=== PATIENT | male | born 1985 | race Caucasian/White ===

== ENCOUNTER 2017-08-17 20:09 | Emergency (ER) | payer OTHER ==
[2017-08-17 20:18] VITALS: BP 132/69
[2017-08-17] MEDS ORDERED: Phenylephrine 0.25% NASAL* PUFF BOTH NARES ONE (20:23)
[2017-08-17] MEDS ORDERED: Phenylephrine 0.5% NASAL* BTL ONE (20:28)
[2017-08-17] MEDS ORDERED: Phenylephrine 1% NASAL* 15 ML BOT ONE (20:36)
[2017-08-17] MEDS ORDERED: Amoxicillin/Clavulanate TAB* 875 MG PO ONE (20:45)
[2017-08-17] MEDS ORDERED: Acetaminop/Codeine 30 MG TAB* 1 TAB (300 MG/30 MG) PO ONE ×2 (20:45→21:21)
--- NOTE | 2017-08-17 21:10 | RAD ---
INDICATION: Hit in nose with lacrosse ball COMPARISON: None TECHNIQUE: Axial source images were acquired from the vertex of the mandible through the orbits. Coronal and sagittal reconstructed images were acquired. FINDINGS: Bones: There are multiple mildly displaced nasal bone fractures. There are no other facial bone fractures. Orbits: The globes and intraconal structures appear intact. The optic nerves are symmetric. Extraocular muscles appear normal. There is no intraconal inflammatory change or retrobulbar mass.. Paranasal sinuses: There is circumferential mucosal thickening of the maxillary antra bilaterally. There is mild mucosal thickening multiple ethmoid air cells. The remaining paranasal sinuses are clear. Brain: There are no acute abnormalities of the visualized brain parenchyma. Soft tissues: There is gauze in the nasal passageway Other: None The visualized soft tissue elements about the neck appear normal. IMPRESSION: BILATERAL DISPLACED NASAL BONE FRACTURES. NO OTHER FACIAL BONE FRACTURE. SINUSITIS.
--- NOTE | 2017-08-17 22:33 | UC ---
Epistaxis Nasal HPI - HPI Summary HPI Summary: 31 year old male presents with severe nose bleed and nasal contusion from a lacrosse ball. - History of Current Complaint Chief Complaint: UCTrauma Stated Complaint: NOSE INJURY Time Seen by Provider: 08/17/17 20:22 Hx Obtained From: Patient Onset/Duration: Lasting Hours Timing: Constant Severity Initially: Moderate Severity Currently: Moderate Pain Intensity: 8 Pain Scale Used: 0-10 Numeric Aggravating Factor(s): Nasal Trauma - Allergies/Home Medications Allergies/Adverse Reactions: Allergies Allergy/AdvReac Type Severity Reaction Status Date / Time No Known Allergies Allergy Verified 08/17/17 20:18 PMH/Surg Hx/FS Hx/Imm Hx Previously Healthy: Yes - Surgical History Surgical History: Yes Surgery Procedure, Year, and Place: Knee Surgeries - Family History Known Family History: Positive: None - Social History Alcohol Use: Rare Substance Use Type: None Smoking Status (MU): Never Smoked Tobacco - Immunization History Most Recent Influenza Vaccination: Not the Season Most Recent Tetanus Shot: Unknown Review of Systems Constitutional: Negative Skin: Negative Eyes: Negative ENT: Epistaxis Respiratory: Negative Cardiovascular: Negative Gastrointestinal: Negative Genitourinary: Negative Motor: Negative Neurovascular: Negative Musculoskeletal: Negative Neurological: Negative Psychological: Negative All Other Systems Reviewed And Are Negative: Yes Physical Exam Triage Information Reviewed: Yes Appearance: Pain Distress Vital Signs: Initial Vital Signs Temp 37.0 C 08/17/17 20:12 Pulse 72 08/17/17 20:12 Resp 18 08/17/17 20:12 BP 132/69 08/17/17 20:12 Pulse Ox 100 08/17/17 20:12 Vital Signs Reviewed: Yes Eye Exam: Normal ENT: Positive: Other - severe nasal swelling , bilateral nasal bleeding, severely deformed nasal anatomy bilateral posterior nasal bleeding not completely resolved by gauze placed at the place of injury Dental Exam: Normal Neck exam: Normal Neck: Positive: 1 Respiratory Exam: Normal Cardiovascular Exam: Normal Abdominal Exam: Normal Musculoskeletal Exam: Normal Neurological Exam: Normal Psychological Exam: Normal Skin Exam: Normal Procedures - Procedure Summary Procedure Summary: bilateral nares examined after gauze removed bilateral posterior bleeding bilateral neosynephrine placed in nares bilateral triple antibiotic placed in nares bilateral merocel nasal placement with successful tamponode of posterior nasal bleed with minimal pain Epistaxis Nasal Course/Dx - Differential Dx/Diagnosis Differential Diagnosis/HQI/PQRI: Epistaxis Provider Diagnoses: epistaxis. bilateral nasal fracture. nasal contusion Discharge - Discharge Plan Condition: Stable Disposition: HOME Discharge Disposition Comment: Patient repeatedly advocated to go to [facility] for Plastic consult Prescriptions: Acetaminop/Codeine 30 MG TAB* [Tylenol/Codeine 30 MG TAB*] 1 tab PO Q8H PRN #9 tab MDD 3 PRN Reason: Pain Amoxicillin/Clavulanate TAB* [Augmentin TAB 875*] 875 mg PO BID #20 tab Patient Education Materials: Nosebleed (ED), Nasal Contusion (ED) Referrals: Lawrence Becker MD [Medical Doctor] - Juan Calhoun MD [Primary Care Provider] - Fred Polk MD [Medical Doctor] - Additional Instructions: My strong suggestion was to go to [facility] for Plastic consult. [facility] was called for Plastic/Maxillary contract engineer availability Dr Prabhakar contract engineer service was called but was told they did not take call from new patients and should call back during office hours. Patient decided to call each ENT provider in AM but is symptoms like bleeding, headache, nausea, vomiting etc. worsen his fiance will take him to [facility]
== END 2017-08-17 21:44 | disposition home or self-care (01) ==
LOC: UCCORT 20:09
DX: S02.2XXA Fracture of nasal bones, initial encounter for closed fracture (principal); S00.33XA Contusion of nose, initial encounter; W21.09XA Struck by other hit or thrown ball, initial encounter; Y93.65 Activity, lacrosse and field hockey; Y92.39 Other specified sports and athletic area as the place of occurrence of the external cause; R04.0 Epistaxis
CPT/HCPCS: 30905; 70486; 99213; A9270-GY; G0463